=== PATIENT | female | born 1980 | race Caucasian/White ===

== ENCOUNTER 2018-08-31 16:22 | Emergency (ER) | payer OTHER ==
[~2018-08-31] VITALS: Ht 157.5 cm; Wt 126.5 kg
[~2018-08-31 16:22] MED LIST: HYDROCODONE-AP1 EAC6 PO; LIPITOR10 MG PO; NORCO 5-325 TA1 EACH PO; ONDANSETRON HCL4 M2 PO; ORTHO-NOVUM1 EAC1 PO; PRILOSEC OTC20 MG PO; ZOFRAN ODT4 MG PO; ZYRTEC10 MG PO
[2018-08-31] MEDS ORDERED: VENTOLIN HFA 1818 GM INH (17:03)
[2018-08-31] MEDS ORDERED: LABETALOL20 MG/4 ML PO (17:03)
[2018-08-31] MEDS ORDERED: FLOVENT HFA 4444 MCG INH (17:04)
[2018-08-31] MEDS ORDERED: METFORMIN HCL500 MG PO (17:04)
[2018-08-31] MEDS ORDERED: HYDROXYZINE HCL25 M1 PO (17:04)
[2018-08-31] MEDS ORDERED: SINGULAIR 10 MG10 M1 PO (17:04)
[2018-08-31] MEDS ORDERED: LEVOTHYROXINE500 MCG PO (17:04)
[2018-08-31] MEDS ORDERED: 24HR ALLERGY REL5 MG PO (17:04)
[2018-08-31] MEDS ORDERED: TRIAMCINOLONE 080 G3 TOP (17:05)
[2018-08-31] MEDS ORDERED: MUPIROCIN22 GM TOP (17:05)
[2018-08-31 18:13] LABS: ABSOLUTE EOSINOPHILS 0.4 thou/uL (0.0-0.7); ABSOLUTE LYMPHOCYTES 2.1 thou/uL (0.8-5.3); ABSOLUTE MONOCYTES 0.4 thou/uL (0.0-1.2); ABSOLUTE NEUTROPHILS 6.5 thou/uL (1.6-8.1); BASOPHILS 0.4 %; EOSINOPHILS 4.4 %; HEMATOCRIT 40.1 % (37.0-47.0); HEMOGLOBIN 13.5 gm/dL (12.0-15.0); LYMPHOCYTES 22.1 %; MCHC 33.6 g/dL (28.0-37.0); MCV 86.3 fL (80.0-100.0); MONOCYTES 4.5 %; MPV 8.3 fl. (7.2-11.1); NUCLEATED RBCS 0 /100WBC; PLATELET COUNT* 352 thou/uL (150-400); POLYS 68.6 %; RBC 4.64 mil/uL (4.20-5.00); WBC 9.4 thou/uL (4.0-11.0)
[2018-08-31 18:13] LABS: URINE BILIRUBIN NEGATIVE (Negative); URINE BLOOD 3+ (Negative); URINE CLARITY CLEAR; URINE COLOR YELLOW; URINE GLUCOSE-RANDOM NEGATIVE (Negative); URINE KETONES NEGATIVE (Negative); URINE LEUKOCYTES-REFLEX NEGATIVE (Negative); URINE NITRITE-REFLEX NEGATIVE (Negative); URINE PROTEIN NEGATIVE (Negative); URINE SPECIFIC GRAVITY 1.015 (1.005-1.030); URINE UROBILINOGEN 0.2 E.U./dl (0.2-1.0)
[2018-08-31 18:18] LABS: CALCIUM 9.7 mg/dL (8.5-10.1); CREATININE 0.9 mg/dL (0.6-1.3); POTASSIUM 3.9 mmol/L (3.5-5.1)
[2018-08-31 18:18] LABS: CASTS None Seen /LPF (None Seen); CRYSTALS None Seen /LPF (None Seen); SQUAMOUS >10 Many /LPF (0-3); URINE RBC >20 Many /HPF (0-2); URINE WBC-REFLEX 0-5 Rare /HPF (0-5)
[2018-08-31 18:22] LABS: ALBUMIN 4.1 g/dL (3.4-5.0); TOTAL BILIRUBIN 0.6 mg/dL (<0.1-1.0); TOTAL PROTEIN 9.1 g/dL (6.4-8.2)
[2018-08-31] MEDS ORDERED: FLAGYL500 MG PO (19:47)
[2018-08-31] MEDS ORDERED: CIPRO500 MG PO (19:47)
[2018-08-31] MEDS ORDERED: ONDANSETRON HCL4 M2 PO (19:47)
[2018-08-31] MEDS ORDERED: BENTYL 20 MG TA20 M1 PO (19:48)
[2018-08-31 20:03] VITALS: BP 110/55
== END 2018-08-31 20:04 | disposition home or self-care (01) ==
LOC: M.ERS 16:22
PROVIDERS: Nurse Practitioner Family
DX: N39.0 Urinary tract infection, site not specified (principal); K59.00 Constipation, unspecified; N83.202 Unspecified ovarian cyst, left side; I88.0 Nonspecific mesenteric lymphadenitis; G47.30 Sleep apnea, unspecified; Z88.8 Allergy status to other drugs, medicaments and biological substances